=== PATIENT | male | born 1990 | race Two or more races ===

== ENCOUNTER 2016-10-18 15:08 | Emergency (ER) | payer MEDICAID ==
[~2016-10-18] VITALS: Ht 172.7 cm; Wt 95.3 kg
--- NOTE | 2016-10-18 15:30 | NUR ---
PT BIBA FOR SHARP SHOOTING LOWER BACK PAIN SINCE THIS AM. S/P FALL WHICH RESULTED TO LUMBAR FRACTURE LAST OCTOBER 08. VSS. SEEN BY PA. PT REPORTS TAKING NORCO AND IBUPROFEN FOR MEDS. SAFETY AND COMFORT MEASURES PROVIDED. WILL MONITOR.
[2016-10-18] MEDS ORDERED: ONDANSETRON HCL/PF 4 MG/2 ML VIAL ONE (15:45)
[2016-10-18] MEDS ORDERED: MORPHINE SULFATE INJ 4 MG/ML DISP.SYRIN ONE (15:45)
[2016-10-18] MEDS ORDERED: IV NS 0.9% 1,000 ML ONE (15:45)
[2016-10-18] MEDS ORDERED: IV SET PRIMARY PUMP SET 1 EA INFUS.SET MC ONE (15:45)
--- NOTE | 2016-10-18 15:50 | NUR ---
TEXTED DR. MCCARTY FOR MRI APPROVAL.
[2016-10-18] MEDS ORDERED: MORPHINE SULFATE INJ 2 MG/ML DISP.SYRIN IV ONE (16:00)
[2016-10-18] MEDS ORDERED: ONDANSETRON HCL/PF 4 MG/2 ML VIAL IVP ONE (16:00)
[2016-10-18] MEDS ORDERED: IV NS 0.9% 1,000 ML BAG IV ONE (16:00)
--- NOTE | 2016-10-18 16:00 | NUR ---
IV ACCESS STARTED. PT MEDICATED ORDERED.
[2016-10-18] MEDS ORDERED: HYDROMORPHONE 1 MG/1 ML DISP.SYRIN ONE ×2 (16:46→17:48)
[2016-10-18] MEDS ORDERED: HYDROMORPHONE 1 MG/1 ML DISP.SYRIN IV ONE (17:00)
--- NOTE | 2016-10-18 17:03 | NUR ---
PT TAKEN TO MRI.
--- NOTE | 2016-10-18 17:45 | NUR ---
PT RETURNED FROM MRI.
[2016-10-18] MEDS ORDERED: HYDROMORPHONE INJ 2 MG/ML DISP.SYRIN IV ONE (18:00)
--- NOTE | 2016-10-18 18:30 | NUR ---
IV removed. Catheter intact and site benign. Pressure and 4x4 applied to site. No bleeding noted.
--- NOTE | 2016-10-18 18:45 | NUR ---
Patient discharged to home in stable condition. Written and verbal after care instructions given. Patient verbalizes understanding of instruction.
[2016-10-18 19:08] VITALS: BP 109/71
== END 2016-10-18 19:08 | disposition home or self-care (01) ==
LOC: ER 15:10
DX: S32.049A Unspecified fracture of fourth lumbar vertebra, initial encounter for closed fracture (principal); S32.059A Unspecified fracture of fifth lumbar vertebra, initial encounter for closed fracture; M54.5 Low back pain; W18.39XA Other fall on same level, initial encounter; Y93.89 Activity, other specified; Y92.89 Other specified places as the place of occurrence of the external cause; Y99.9 Unspecified external cause status
CPT/HCPCS: 72148; 96361; 96374; 96375; 96376; 99284; A4606; J1170 ×2; J2270; J2405; J7030; Z7610